=== PATIENT | male | born 1990 | race Caucasian/White ===

== ENCOUNTER → 2016-11-09 07:00 | Day surgery (SDC) | payer BC, OTHER ==
[~2016-11-09 07:00] MED LIST: Buffered Lidocaine 1% SYRIN* 3 ML/SYR SYRINGE INTRADERM ONE; Bupivacaine 0.25% EPI 200,000* 30 ML SDV ONE; Bupivacaine 0.25% SDV* 30 ML ONE; Dexamethasone IV* 4 MG/ML 1 ML (4 MG) ONE; Ketorolac INJ* 30 MG/ML 1 ML VIAL ONE; Lidocaine 2% PF* 5 ML VIAL ONE; Midazolam* 1 MG/ML 2 ML VIAL (2 MG) ONE; Ondansetron INJ* 2 MG/ML VIAL IV PRN; Ondansetron INJ* 2 MG/ML VIAL ONE; Propofol* 10 MG/ML 20 ML BTL IV PUSH ONE; Sodium Citrate/Citric Acid* 15 ML UDC ONE; Sodium Citrate/Citric Acid* 15 ML UDC PO ONE; ceFAZolin 2 GM PREMIX(*) 2 GM/50 ML BAG IVPB ONE; fentaNYL* 50 MCG/ML 2 ML VIAL (100 MCG VIAL) ONE; oxyCODONE/Acetamin 5/325 MG* TAB ONE
[2016-11-09] MEDS: fentaNYL* 50 MCG/ML 2 ML VIAL (100 MCG VIAL) IV PRN ×4 (10:25→11:16)
[2016-11-09 12:06] VITALS: BP 132/79
--- NOTE | 2016-11-10 15:05 | OP ---
DATE OF OPERATION: 11/09/16 - [facility] DATE OF : 89 ATTENDING SURGEON: Juancarlos Bryant MD FORM TAMPING MACHINE OPERATOR: FARZAD Devi. An assistant media planner was needed for the entirety of the case to help with positioning, retracting and was utilized throughout all portions of the case. ANESTHESIOLOGIST: Dr. Mehta. ANESTHESIA: General. PRE-OP DIAGNOSIS: Right shoulder instability with bicipital tendonitis. POST-OP DIAGNOSES: 1. Right shoulder glenohumeral arthritis. 2. Grade 2 superior, anterior and posterior labral tears. 3. Posterior capsular tearing. OPERATIVE PROCEDURES: Right shoulder arthroscopy with: 1. Extensive glenohumeral debridement including chondroplasty. 2. Anterior and posterior labral repair. 3. Subpectoral biceps tenodesis. 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 He sustained multiple dislocations to his shoulder. He had persistent pain, biceps related pain. He appeared to have instability anteriorly and posteriorly. The risks and benefits of surgical versus nonoperative treatment were discussed at length and both he and his family have elected to proceed with surgery. Risks included, but are not limited to bleeding, infection, damage to nerves, vessels, surrounding structures, scarring, persistent pain, need for further surgery, incomplete relief of symptoms, need for further surgery, redislocation, failure of the repair, risks of arthritis, risks of anesthesia, risks of DVTs. He has elected to proceed. DESCRIPTION OF PROCEDURE: The patient was greeted in the preoperative area by the attending surgeon. Correct extremity was marked, consent was confirmed. The patient was brought to the operating suite, where he was placed in the supine position on the operating table. He then underwent general anesthesia with LMA intubation, after which patient was placed in the left lateral decubitus position with all bony prominences padded and an axillary roll was placed. He was supported with peg board. The right shoulder was then suspended from the traction frame with 10 pounds of traction. The right shoulder was then prepped and draped in the usual sterile fashion again with chlorhexidine soap, scrub and alcohol wipe and the final prep with ChloraPrep. After appropriate surgical pause indicating side, site, procedure, administration of antibiotics, a standard posterolateral portal as made using an 11 blade. The scope was then positioned into the glenohumeral joint and the joint was then examined. There was tearing in the biceps tendon as well as tearing of the superior labrum, which extended down to the anterior labrum and into the posterior labrum, so he had essentially 360 degrees of labral tear. The shoulder itself was not unstable and was not dislocated, however, but there was evidence of it subluxing anteriorly. There were grade 2 and a small area of grade 4 changes to the glenoid, which was inferiorly based. There were no specific HAGL lesion, but there was evidence of tearing of the capsule, particularly posteriorly inferiorly. There were unstable flaps anteriorly and the labrum was completely torn off with unstable flap from 12 to 3 o'clock position. It was, however, attached at the 3 o'clock position. There was an unstable tear from 3:[address] to this 5:30 position. Again, there was no labrum proximal from the 12 o'clock to a 3 o'clock position that was attached and the tissue quality was poor. Posterior labrum was also torn, but appeared to not be subluxing. Both anterior portals were made both using the needle for localization. First the low anterior portal just proximal to the subscap and the second superior one, which was in the superior aspect of the recess. An 8.25 mm cannula was placed in the low anterior portal. Shaver was used to debride back down to stable tissue and to do biceps tenotomy as the biceps was torn in the length of the biceps as well as superior labrum. The biceps was then tenotomized. The inferior aspect of the supraspinatus tendon had mild fraying. The subscapularis was intact. The infraspinatus had evidence of partial tearing as well, but not significantly. The shaver was then used to do a small chondroplasty of the unstable flaps of the glenoid as well the humeral cartilage and the joint was examined. At this point, decision was made to try to fix the unstable flaps of labrum from the 3 o'clock position more inferiorly without detaching it proximally at the 3 o'clock position. Therefore, carefully the rasp and elevator were used to release the labrum inferiorly and prepare the bony bed. After this was done, two 2.9 mm BIORAPTORS were then drilled and placed with excellent purchase beginning with first with a 5:30 and then the 4:30 position. At this point, it was not felt there could be anymore anchors placed without damaging his intact labrum proximally. The sutures were then passed through the labrum and the capsule to allow for capsular shift inferior to superior as well as encompass the labrum. These were tied down using arthroscopic knot tying techniques. Both were placed in a similar fashion. At this point, attention was directed posteriorly and it was felt that the labrum looked like it had an unstable flap. At this point, the scope was placed in the superior portal to view posteriorly. A third cannula was placed posteriorly at the posterior portal. The probe was placed and the posterior labrum was demonstrated to not be intact. The shaver was used to debride back down to stable flap and perform a chondroplasty inferiorly. At this point, a decision was made to place one anchor in the middle of the torn defect. The anchor was drilled and then placed with excellent purchase. The labrum was then repaired by grabbing the inferior aspect of the capsule including the area just next to the capsular tear. This allowed for excellent purchase posteriorly inferiorly as well. This was then tied down with care to place the knots not in an area that would cause irritation. Once this was complete, final images were obtained. The humeral head was seated appropriately in the center. All fluid and debris was removed from the joint. The bed was slightly airplaned to the right side and the attention was directed to the subpectoral biceps tenodesis. The anterior aspect of the shoulder was prepped again using ChloraPrep. An incision was made in line with the biceps tendon encompassing the inferior two-thirds of the pec tendon. The dissection was carried down using a Metzenbaum scissors. The fascia was identified. Once the fascia was identified and the pec tendon identified, reminder of the dissection was done bluntly. The inferior pec was retracted superiorly using a Munira elevator. The biceps groove was palpated. A small ashley in the biceps groove was made using a Bovie and the biceps was brought through the wound. It was found to have a partial tearing as well adhesions to the bicipital groove. The groove was then prepared in the usual fashion with a Bovie device, the red ball rasp as well as an osteotome to allow for bony bleeding bed. The Q-Fix anchor was then used to drill unicortically and then the Q-Fix was deployed with excellent purchase. The sutures were then passed through the tendon approximately 1 cm proximal to the musculotendinous junction in a Kyle-Guicho type configuration. The sutures were then tied down and with a good fixation after the excess stump was removed. The wound was thoroughly irrigated with sterile saline. The anterior wound was closed in layers of 2-0 Vicryl and 3-0 Monocryl and the portals with 3-0 nylon. Sterile dressings were applied. The intraarticular joint was injected with 15 cc. The anterior wound was injected with 15 cc and portals were injected with about 20 cc of 0.25% lidocaine plain. Sterile dressings were applied as well as the Cryo/Cuff and an UltraSling. He was awoken from anesthesia and transferred to PACU in stable condition. POSTOPERATIVE PLAN: He will be nonweightbearing. He will be in a sling for approximately 6 weeks. He will be allowed to work on elbow, wrist and hand range of motion. He will be discharged on pain medication as well as antibiotics. DVT prophylaxis was considered, but deferred due to no previous personal or family history. I will see the patient back in 10 to 14 days. [id number]/[facility] #: [id number] INDU
== END | disposition home or self-care (01) ==
LOC: OREAST 07:00
PROVIDERS: ATTEND Orthopaedic Surgery
DX: M25.311 Other instability, right shoulder (principal); M75.21 Bicipital tendinitis, right shoulder
CPT/HCPCS: 88304; A9270-GY; C1776; J0690; J1100; J1885; J2250; J2405; J2704; J3010